=== PATIENT | female | born 1950 | race Caucasian/White ===

== ENCOUNTER → 2019-11-28 13:15 | Outpatient (CLI) | payer MEDICARE, SELFPAY ==
--- NOTE | 2019-11-28 13:26 | CT_ITS ---
STUDY: CT ABDOMEN AND PELVIS WITHOUT CONTRAST REASON FOR EXAM: Female, 68 years old. LLQ PAIN, MICROHEMATURIA, HYSTERECTOMY RADIATION DOSAGE (If Supplied By Facility): CTDIvol = ( 8.60 ) mGy, DLP = ( 370.47 ) mGycm TECHNIQUE: Transaxial images were obtained from the dome of the diaphragm to the symphysis pubis without oral contrast, and without intravenous contrast. Sagittal and coronal images were reconstructed. Individualized dose optimization techniques were used for this CT. COMPARISON: None. FINDINGS: The visualized lung bases are unremarkable. The visualized portions of the heart are within normal limits. Normal liver. Normal gallbladder and extrahepatic biliary system. Normal spleen. Normal pancreas. Normal bilateral adrenal glands. No evidence for renal obstruction or ureteral calculus. No definitive evidence for renal mass given limited unenhanced study Normal visualized stomach. Normal small intestine. Diffuse fecal retention noted within the colon.. No evidence for acute appendicitis. Atherosclerotic changes of the aorta without evidence for aneurysm.. Normal inferior vena cava. Normal retroperitoneum. Normal urinary bladder. Uterus not visualized consistent with hysterectomy. Normal abdominal wall. Lumbar spine demonstrates mild degenerative change. CT/Abdomen/Pelvis without Cont IMPRESSION: No acute abnormalities.. Specifically, no evidence for hydronephrosis or ureteral calculus. Other findings as above Electronically Signed: Tung Kwan MD at 16:59 EST , Service support ,
== END ==
PROVIDERS: Referring Provider Nurse Practitioner Family; Visit Provider Nurse Practitioner Family
DX: R10.32 Left lower quadrant pain (principal)
CPT/HCPCS: 74176

== ENCOUNTER → 2020-01-27 13:26 | Outpatient (CLI) | payer MEDICARE, SELFPAY ==
--- NOTE | 2020-01-27 13:40 | US_ITS ---
STUDY: ULTRASOUND OF THE FEMALE PELVIS - COMPLETE REASON FOR EXAM: Female, 69 years old. LLQ PAIN -- S/P HYSTERECTOMY LMP: The patient is postmenopausal. TECHNIQUE: Transabdominal TECHNICAL QUALITY: Adequate. COMPARISON: None. FINDINGS: Patient is status post hysterectomy. The right ovary is visualized. The right ovary measures 2.3 cm x 2.1 cm x 1.7 cm. There is no right ovarian cyst or ovarian mass. There is no visualized right adnexal mass or complex lesion. There is normal arterial and normal venous vascularity. The left ovary is not visualized. There is no fluid in the cul-de-sac. The pre void volume of the bladder was 268 ml. Polycystic ovary disease: No. US/Pelvic (Non ) IMPRESSION: Status post hysterectomy. Unremarkable right ovary. The left ovary is not visualized. Electronically Signed: Terrell Larson, at 15:40 EDT , Service support ,
== END ==
PROVIDERS: Referring Provider Internal Medicine Gastroenterology; Visit Provider Internal Medicine Gastroenterology
DX: R10.32 Left lower quadrant pain (principal)
CPT/HCPCS: 76856

== ENCOUNTER → 2023-09-25 | Outpatient (CLI) | payer MEDICARE, SELFPAY ==
--- NOTE | 2023-09-25 12:45 | CDU_ITS ---
Reason For Study: Bilateral carotid bruit Rt. Velocities/BP Lt. Velocities/BP Prox CCA 75.9/18.2 cm/sec. Prox CCA 76.2/19.5 cm/sec. Mid CCA 68.3/16.3 cm/sec. Mid CCA 67.4/18.6 cm/sec. Dist CCA 53.2/17.3 cm/sec. Dist CCA 58.7/16 cm/sec. Prox ICA 52.2/15.4 cm/sec. Prox ICA 48.2/17.7 cm/sec. Mid ICA 58.9/20.1 cm/sec. Mid ICA 63.9/21.2 cm/sec. Dist ICA 65.5/23 cm/sec. Dist ICA 62.2/22.9 cm/sec. Rt. ICA/CCA = 0.96. Lt. ICA/CCA = 0.95. Prox ECA 75.9/14.5 cm/sec. Prox ECA 86.6/12.5 cm/sec. Rt. Vert. 31.5/8.8 cm/sec. Lt. Vert. 36/9.9 cm/sec. Right Extracranial There is homogeneous, smooth atherosclerotic plaque noted in the right common carotid artery. There is intimal thickening but no significant atherosclerotic plaque noted in the right internal carotid artery. There is intimal thickening but no significant atherosclerotic plaque noted in the right external carotid artery. Left Extracranial There is homogeneous, smooth atherosclerotic plaque noted in the left common carotid artery. There is intimal thickening but no significant atherosclerotic plaque noted in the left internal carotid artery. There is intimal thickening but no significant atherosclerotic plaque noted in the left external carotid artery. Antegrade flow is noted in the left vertebral artery. Procedure Carotid Duplex [id number]. This is a Carotid Duplex examination using B-mode, color flow and specral Doppler. Exam performed in department. VL/Carotid Duplex Ultrasound Interpretation Summary Intimal thickening at the proximal right internal carotid artery with less than 50% stenosis Less than 50% stenosis right external carotid artery Intimal thickening at the proximal left internal carotid artery with less than 50% stenosis Less than 50% stenosis left external carotid artery Patent and antegrade vertebral arteries bilaterally Ordering Physician: Hollie Yeboah Referring Physician: Hollie Yeboah Performed By: Jessica Avila RVT
== END | disposition home or self-care (01) ==
PROVIDERS: PCP Nurse Practitioner Family; Referring Provider Nurse Practitioner Family; Visit Provider Nurse Practitioner Family
DX: R09.89 Other specified symptoms and signs involving the circulatory and respiratory systems (principal); I10 Essential (primary) hypertension
CPT/HCPCS: 93880